=== PATIENT | male | born 1990 | race Caucasian/White ===

== ENCOUNTER 2019-05-02 12:26 | Emergency (ER) | payer BC ==
--- NOTE | 2019-05-02 12:59 | EDM.PDOC ---
ED HPI GENERAL MEDICAL PROBLEM - General Chief Complaint: ENT Problem Stated Complaint: NOSE WON'T STOP BLEEDING Time Seen by Provider: 05/02/19 12:47 Source of Information: Reports: Patient History Limitations: Reports: No Limitations - History of Present Illness INITIAL COMMENTS - FREE TEXT/NARRATIVE: Has had a cold for about a week. On Monday he was started on Prednisone. On Monday he noted blood running down the back of his throat. He has not had an nasal drainage. During the night last night he had blood clots posteriorly and would cough them up. He denies any trauma or pain to the nose. Onset: Gradual - Related Data Allergies Allergy/AdvReac Type Severity Reaction Status Date / Time No Known Allergies Allergy Verified 05/02/19 12:41 Home Meds: Home Meds Amoxicillin 500 mg PO BID 05/02/19 [History] Esomeprazole Magnesium 20 mg PO DAILY 05/02/19 [History] predniSONE 40 mg PO DAILY 05/02/19 [History] Past Medical History Cardiovascular History: Reports: Heart Murmur Gastrointestinal History: Reports: GERD - Past Surgical History Cardiovascular Surgical History: Reports: None Social & Family History - Family History Family Medical History: Noncontributory - Tobacco Use Smoking Status *Q: Never Smoker Second Hand Smoke Exposure: No - Caffeine Use Caffeine Use: Reports: Soda - Recreational Drug Use Recreational Drug Use: No ED ROS ENT - Review of Systems Review Of Systems: See Below Constitutional: Denies: Fever, Chills HEENT: Reports: Nosebleed Respiratory: Reports: No Symptoms Cardiovascular: Reports: No Symptoms GI/Abdominal: Reports: No Symptoms Musculoskeletal: Reports: No Symptoms Skin: Reports: No Symptoms Neurological: Reports: No Symptoms ED EXAM, ENT - Physical Exam Exam: See Below Exam Limited By: No Limitations General Appearance: Alert, WD/WN, No Apparent Distress Ears: Normal External Exam, Normal Canal, Normal TMs Nose: Normal Inspection, Nasal Swelling, Other (No blood noted in the nasal passages bilaterally. Nasal ). No: Nasal Deformity, Nasal Discharge, Nasal Tenderness Mouth/Throat: Normal Inspection, Normal Oropharynx, Other (blood noted to the posterior pharynx.) Head: Atraumatic, Normocephalic Neck: Normal Inspection, Supple, Non-Tender, Full Range of Motion Respiratory/Chest: No Respiratory Distress, Lungs Clear, Normal Breath Sounds Cardiovascular: Regular Rate, Rhythm Neurological: Alert, Oriented Skin: Warm, Dry, Intact Course - Vital Signs Last Recorded V/S: Last Vital Signs Temp 96.8 F 05/02/19 12:37 Pulse 105 H 05/02/19 12:37 Resp 16 05/02/19 12:37 BP 162/92 H 05/02/19 12:37 Pulse Ox 98 05/02/19 12:37 - Orders/Labs/Meds Meds: Medications Discontinued Medications Generic Name Dose Route Start Last Admin Trade Name Juliana PRN Reason Stop Dose Admin Oxymetazoline HCl 1 ml 05/02/19 13:15 05/02/19 13:16 Afrin Original 0.05% Nasal [place] DESIREE 05/02/19 13:16 1 ml ONETIME ONE Administration - Re-Assessments/Exams Free Text/Narrative Re-Assessment/Exam: 05/02/19 13:03 Contacted ENT in [place] and he is out of town until May discussed case with Dr. Diaz and he suggested to pack both nares and recheck tomorrow. If bleeding continues then may need to go to ENT. Nasal tampons inserted into both nares. Departure - Departure Time of Disposition: 13:25 Disposition: Home, Self-Care 01 Condition: Good Clinical Impression: Epistaxis - Discharge Information *PRESCRIPTION DRUG MONITORING PROGRAM REVIEWED*: Not Applicable *COPY OF PRESCRIPTION DRUG MONITORING REPORT IN PATIENT JENNY: Not Applicable Instructions: Nosebleed, Adult Referrals: Wood Diaz MD [Primary Care Provider] - Forms: ED Department Discharge Additional Instructions: Do not remove packing recheck in clinic tomorrow and have packing removed Monitor for any bleeding over night. Sepsis Event Note - Evaluation Sepsis Screening Result: No Definite Risk - Focused Exam Date Exam was Performed: 05/03/19 Time Exam was Performed: 07:29 - Problem List & Annotations (1) Epistaxis SNOMED Code(s): 109294053 Code(s): R04.0 - EPISTAXIS Status: Acute Priority: High - Problem List Review Problem List Initiated/Reviewed/Updated: Yes
[2019-05-02] MEDS ORDERED: Oxymetazoline 0.05% Nasal Spray 15 ML Bottle NAS ONE (13:15)
== END 2019-05-02 13:31 | disposition home or self-care (01) ==
LOC: CC.ED 12:26
DX: R04.0 Epistaxis (principal); K21.9 Gastro-esophageal reflux disease without esophagitis; Z79.899 Other long term (current) drug therapy
CPT/HCPCS: 30901-50; 99283-25

== ENCOUNTER 2020-06-08 12:34 | Emergency (ER) | payer OTHER, BC ==
[2020-06-08] MEDS ORDERED: Lidocaine 1% 30 ML SDV INJECT STA (13:03)
[2020-06-08] MEDS ORDERED: Diphtheria,Pertussis(Acell),Tetanus Vaccine 0.5 ML Syringe IM ONE (13:03)
--- NOTE | 2020-06-08 13:36 | EDM.PDOC ---
ED HPI GENERAL MEDICAL PROBLEM - General Chief Complaint: General Stated Complaint: CUT FINGER Time Seen by Provider: 06/08/20 13:02 Source of Information: Reports: Patient History Limitations: Reports: No Limitations - History of Present Illness INITIAL COMMENTS - FREE TEXT/NARRATIVE: Nikunj is a 29 yo male who presents to the ED with c/o laceration to his left index finger. Was at work cutting a pipe when his knife slipped and cut his finger. CMS intact. 1.5 cm deep laceration to left index finger just above MCP. Bleeding well controlled. Denies any other injury. Onset: Today, Sudden Location: Reports: Upper Extremity, Left (2nd digit) Associated Symptoms: Reports: No Other Symptoms - Related Data Allergies Allergy/AdvReac Type Severity Reaction Status Date / Time No Known Allergies Allergy Verified 06/08/20 12:54 Home Meds: Home Meds Cholecalciferol (Vitamin D3) [Vitamin D3] 2,000 unit PO DAILY 06/08/20 [History] FA/Lycopene/Lut/MV,Ca,Iron,Min [Centrum] 1 tab PO DAILY 06/08/20 [History] Venlafaxine [Effexor] 25 mg PO DAILY 06/08/20 [History] Past Medical History Cardiovascular History: Reports: Heart Murmur Gastrointestinal History: Reports: GERD Psychiatric History: Reports: Anxiety - Past Surgical History Cardiovascular Surgical History: Reports: None GI Surgical History: Reports: Other (See Below) Other GI Surgeries/Procedures: hernia repair 2006 Social & Family History - Family History Family Medical History: No Pertinent Family History - Tobacco Use Tobacco Use Status *Q: Never Tobacco User - Caffeine Use Caffeine Use: Reports: None - Recreational Drug Use Recreational Drug Use: No ED ROS GENERAL - Review of Systems Review Of Systems: Comprehensive ROS is negative, except as noted in HPI. ED EXAM, GENERAL - Physical Exam Exam: See Below Exam Limited By: No Limitations General Appearance: Alert, WD/WN, No Apparent Distress Peripheral Pulses: 2+: Radial (L) Extremities: Other (1.5 cm laceration to left index finger just distal to MCP, ROM intact, cap refill intact, sensation intact) ED GENERAL MEDICAL PROCEDURES - Laceration/Wound Repair Left Digit - 2nd (Index) Lac/wound length in cm: 1.5 Appearance: Subcutaneous, Linear, Clean Distal NVT: Neuro & Vascular Intact, No Tendon Injury Anesthetic Type: Local Local Anesthesia - Lidocaine (Xylocaine): 1% Plain Local Anesthetic Volume: 3cc Skin Prep: Providone-Iodine (Betadine), Saline Exploration/Debridement/Repair: Wound Explored, No Foreign Material Found Closed with: Sutures Suture Size: 5-0 # of Sutures: 4 Suture Type: Nylon, Interrupted, Simple Sterile Dressing Applied: Nurse Tetanus Status Addressed: Yes Complications: No Progress/Comments: Patient tolerated well. CMS intact pre and post closure. Course - Vital Signs Last Recorded V/S: Last Vital Signs Temp 98.6 F 06/08/20 12:38 Pulse 87 06/08/20 12:38 Resp 18 06/08/20 12:38 BP 162/108 H 06/08/20 12:38 Pulse Ox 96 06/08/20 12:38 - Orders/Labs/Meds Meds: Medications Discontinued Medications Generic Name Dose Route Start Last Admin Trade Name Freq PRN Reason Stop Dose Admin Diphtheria/Tetanus/Acell Pertussis 0.5 ml 06/08/20 13:03 06/08/20 13:14 Boostrix IM 06/08/20 13:04 0.5 ml .ONCE ONE Administration Lidocaine HCl 10 ml 06/08/20 13:03 06/08/20 13:13 Xylocaine-Mpf 1% INJECT 06/08/20 13:04 Not Given STAT STA Lidocaine HCl 5 ml 06/08/20 13:10 06/08/20 13:13 Xylocaine-Mpf 1% INJECT 06/08/20 13:11 5 ml ONETIME ONE Administration Departure - Departure Time of Disposition: 13:34 Disposition: Home, Self-Care 01 Condition: Good Clinical Impression: Laceration of finger Qualifiers: Encounter type: initial encounter Finger: index finger Damage to nail status: without damage Foreign body presence: without foreign body Laterality: left Qualified Code(s): S61.211A - Laceration without foreign body of left index finger without damage to nail, initial encounter - Discharge Information *PRESCRIPTION DRUG MONITORING PROGRAM REVIEWED*: Not Applicable *COPY OF PRESCRIPTION DRUG MONITORING REPORT IN PATIENT JENNY: Not Applicable Referrals: Wood Diaz MD [Primary Care Provider] - Forms: ED Department Discharge Additional Instructions: - Keep area clean and dry - Cover when working in dirty conditions - No heavy lifting - Avoid bending finger as much as possible - Tylenol or ibuprofen as needed - Ice as needed for swelling - Follow up for suture removal 14 days. Call clinic to scheduled Workers Comp Suture Removal Sepsis Event Note (ED) - Evaluation Sepsis Screening Result: No Definite Risk - Focused Exam Vital Signs: Vital Signs Temp Pulse Resp BP Pulse Ox 06/08/20 12:38 98.6 F 87 18 162/108 H 96 - Problem List & Annotations (1) Laceration of finger SNOMED Code(s): 538983032 Code(s): S61.219A - LACERATION W/O FB OF UNSP FINGER W/O DAMAGE TO NAIL, INIT Status: Acute Qualifiers: Encounter type: initial encounter Finger: index finger Damage to nail status: without damage Foreign body presence: without foreign body Laterality: left Qualified Code(s): S61.211A - Laceration without foreign body of left index finger without damage to nail, initial encounter - Problem List Review Problem List Initiated/Reviewed/Updated: Yes - Assessment/Plan Assessment:: Laceration of LEft Index Finger Plan: As above.
== END 2020-06-08 13:42 | disposition home or self-care (01) ==
LOC: SUPCPDRO 12:34 → CC.ED 12:34
DX: S61.211A Laceration without foreign body of left index finger without damage to nail, initial encounter (principal); Z23 Encounter for immunization; W26.0XXA Contact with knife, initial encounter; Y92.89 Other specified places as the place of occurrence of the external cause; Y99.0 Civilian activity done for income or pay
CPT/HCPCS: 12001; 90471; 90715; 99282-25; J2001

== ENCOUNTER 2021-10-02 19:33 | Emergency (ER) | payer BC, OTHER ==
[2021-10-02] MEDS: Bacitracin/Neomycin/Polymyxin B Oint 0.9 GM U/D Packet TOP ONE (20:03)
[2021-10-02] MEDS: Take Home: Amoxicillin/Clavulanate K 875-125 MG Tab, 2 Tab Pack PO ONE (20:22)
== END 2021-10-02 20:30 | disposition home or self-care (01) ==
LOC: CC.ED 19:33
DX: S61.431A Puncture wound without foreign body of right hand, initial encounter (principal); W26.8XXA Contact with other sharp object(s), not elsewhere classified, initial encounter
CPT/HCPCS: 12001; 99282-25; 99283; A9270-GY

== ENCOUNTER 2023-09-06 11:23 | Emergency (ER) | payer OTHER, BC ==
[2023-09-06] MEDS: Bacitracin Oint 1 GM U/D Packet ONE (11:52)
[2023-09-06] MEDS: Lidocaine 1% with EPINEPHrine 1:100,000 10 ML MDV INJECT ONE (11:54)
[2023-09-06] MEDS: Bacitracin Oint 1 GM U/D Packet TOP ONE (11:55)
== END 2023-09-06 12:35 | disposition home or self-care (01) ==
LOC: CC.ED 11:23
DX: S61.412A Laceration without foreign body of left hand, initial encounter (principal); W26.0XXA Contact with knife, initial encounter; Y93.89 Activity, other specified; Y99.0 Civilian activity done for income or pay
CPT/HCPCS: 12002; 99282; 99283; J3490